=== PATIENT | female | born 1950 | race Caucasian/White ===

== ENCOUNTER → 2016-06-01 | Outpatient (CLI) | payer OTHER, BC | LOC: ULTRA 13:43 | DX: R92.8 Other abnormal and inconclusive findings on diagnostic imaging of breast (principal) ==

== ENCOUNTER → 2016-07-25 | Outpatient (CLI) | payer OTHER, BC | LOC: ULTRA 02:08 | DX: K11.8 Other diseases of salivary glands (principal) ==

== ENCOUNTER → 2016-08-09 | Outpatient (CLI) | payer OTHER, BC ==
--- NOTE | ~2016-08-09 | CNG ---
[facility] [place] [address] CYTO-NONGYN REPORT PROCEDURE Name: BEVERLY GARCIA Room #: REG CLSarah Ceron#: [id number] Admission: 08/09/16 Date of : 48 Discharge: Report #: [id number] Path Case #: [id number] CYTOPATHOLOGY REPORT COLLECTION DATE: 08/09/2016 RECEIVED DATE: 08/09/2016 SUBMITTING PHYS: Dr. Ganesh Clark OTHER PHYS: Dr Marlene Mcfarlane CLINICAL HISTORY: Right parotid mass SPECIMEN(S) RECEIVED: A.Fine needle aspiration, Right parotid * * * * * * * * * * * * FINAL DIAGNOSIS: A. Fine needle aspiration, Right parotid: Consistent with pleomorphic adenoma. COMMENT: Technical Consultant slides are co-reviewed with Dr. Nimo Rivers. Clinical and radiographic correlation is recommended. PATHOLOGIST: Monika Thomas M.D. REPORT ELECTRONICALLY SIGNED BY: Monika Thomas M.D. DATE/TIME: 08/10/2016 13:08 * * * * * * * * * * * * GROSS PATHOLOGY: A. Fine needle aspiration, Right parotid: The specimen is labeled "Beverly Garcia" and consists of two fixed slides and two air dried slides. Sixteen mL of clear red fluid in fixative from the needle rinse is also submitted and one ThinPrep slide was prepared from this material. One RNA Retain vial was received. (mm 08.09.2016) FARM TRACTOR MECHANIC(S): Annie Oscar, CT(ASCP), IAC INITIAL CPT CODE(S): A; 13522 Professional services performed by [facility] at [facility] [address], [place] [address] Technical services performed by [facility] at [address] [place] [address]., [address], [place] [address]. [facility] [address] [place] [address] CYTO-NONGYN REPORT PROCEDURE Name: RAJESHBEVERLY KEVIN Room #: REG SUMIT Dale.#: [id number] Admission: 08/09/16 Date of : 48 Discharge: Report #: [id number] Path Case #: [id number] [facility] [address] [place] [address], [address] [place] [address] PHONE: [phone] DIRECTOR: Kel Gold M.D. * * * END OF REPORT * * *
== END | disposition home or self-care (01) ==
LOC: ULTRA 12:42 → EDSTATUS 12:42 → ULTRA 13:59
DX: K11.8 Other diseases of salivary glands (principal)

== ENCOUNTER 2016-12-17 12:32 | Inpatient (IN) | payer OTHER, BC ==
[~2016-12-17] VITALS: Ht 154.9 cm; Wt 81.6 kg
[2016-12-17 12:33] VITALS: BP 186/97
[2016-12-17] MEDS ORDERED: LAMICTAL100 MG PO (12:48)
[2016-12-17] MEDS ORDERED: PRAVACHOL20 MG PO (12:48)
[2016-12-17] MEDS ORDERED: COPAXONE20 MG/SYR INJECTION (12:48)
[2016-12-17] MEDS ORDERED: COREG25 MG PO (12:49)
[2016-12-17] MEDS ORDERED: UROCIT-K5 ME1 PO (12:49)
[2016-12-17] MEDS ORDERED: CO Q-10100 MG PO (12:49)
[2016-12-17] MEDS ORDERED: VITAMIN D1000 UNI1 PO (12:50)
[2016-12-17] MEDS ORDERED: OMEGA-31000 M1 PO (12:50)
[2016-12-17 13:29] LABS: BASOPHILS 0.7 % (0.0-2.0); EOSINOPHILS 0.6 % (0.0-3.0); HEMATOCRIT 38.9 % (37.0-47.0); HEMOGLOBIN 13.1 gm/dL (12.0-15.0); LYMPHOCYTES 9.4 % (24.0-44.0); MCHC 33.6 g/dL (28.0-37.0); MCV 83.3 fL (80.0-100.0); MONOCYTES 5.3 % (1.0-8.0); PLATELET COUNT 274 thou/uL (150-400); RBC 4.67 mil/uL (4.20-5.00); WBC 10.7 thou/uL (4.0-11.0)
[2016-12-17 13:32] LABS: MANUAL DIFF NO
[2016-12-17 13:36] LABS: CALCIUM 9.2 mg/dL (8.5-10.1); CREATININE 2.2 mg/dL (0.6-1.0)
[2016-12-17 14:17] LABS: URINE BILIRUBIN NEGATIVE (Negative); URINE BLOOD 3+ (Negative); URINE COLOR YELLOW; URINE GLUCOSE-RANDOM* NEGATIVE (Negative); URINE KETONES NEGATIVE (Negative); URINE NITRITE NEGATIVE (Negative); URINE PROTEIN (DIPSTICK) NEGATIVE (Negative); URINE UROBILINOGEN 0.2 E.U./dl (0.2-1.0)
[2016-12-17 14:30] LABS: SQUAMOUS >10 Many /LPF (0-3)
[2016-12-17 14:31] LABS: BACTERIA None Seen /HPF (None Seen); CASTS None Seen /LPF (None Seen); CRYSTALS None Seen /LPF (None Seen); URINE WBC 0-5 Rare /HPF (0-5)
[2016-12-17 16:11] VITALS: BP 226/79
[2016-12-17 16:40] VITALS: BP 141/65
[2016-12-17 17:25] VITALS: BP 150/62
[2016-12-17 19:44] VITALS: BP 146/53
[2016-12-18 04:28] VITALS: BP 175/66
[2016-12-18 05:40] LABS: HEMATOCRIT 37.7 % (37.0-47.0); HEMOGLOBIN 12.7 gm/dL (12.0-15.0); MCH 28.3 pg (26.0-34.0); MCHC 33.8 g/dL (28.0-37.0); MCV 83.8 fL (80.0-100.0); RBC 4.5 mil/uL (4.20-5.00); RDW 15.2 % (10.5-14.5); WBC 8.8 thou/uL (4.0-11.0)
[2016-12-18 05:47] LABS: POTASSIUM 3.6 mmol/L (3.5-5.1)
[2016-12-18 05:56] LABS: CREATININE 0.9 mg/dL (0.6-1.0)
[2016-12-18 07:45] VITALS: BP 175/71
[2016-12-18 15:29] VITALS: BP 175/66
== END 2016-12-18 15:55 | disposition home or self-care (01) | DRG 693 ==
LOC: ER 12:32 → 4S 16:05 → EROBS 16:05 → 4S 16:41 → ENTRNSPT 12-18 15:35 → EDTRNSPTSTS 12-18 15:37 → 4S 12-18 15:55 → EDTRNSPT 12-18 15:56
PROVIDERS: Emergency Medicine; Hospitalist
DX: N20.0 Calculus of kidney (principal); N17.0 Acute kidney failure with tubular necrosis; I10 Essential (primary) hypertension; G35 Multiple sclerosis; E78.5 Hyperlipidemia, unspecified; Z87.442 Personal history of urinary calculi; Z90.5 Acquired absence of kidney; Z90.710 Acquired absence of both cervix and uterus
CPT/HCPCS: 10100

== ENCOUNTER 2017-12-07 23:07 | Emergency (ER) | payer OTHER, BC ==
[~2017-12-07] VITALS: Ht 152.4 cm; Wt 81.7 kg
[~2017-12-07 23:07] MED LIST: CO Q-10100 MG PO; COPAXONE20 MG/SYR INJECTION; COREG25 MG PO; LAMICTAL100 MG PO; OMEGA-31000 M1 PO; PRAVACHOL20 MG PO; UROCIT-K5 ME1 PO; VITAMIN D1000 UNI1 PO
[2017-12-08 00:35] LABS: BASOPHILS 0.6 % (0.0-2.0); EOSINOPHILS 1.8 % (0.0-3.0); HEMATOCRIT 36.3 % (37.0-47.0); HEMOGLOBIN 12.3 gm/dL (12.0-15.0); LYMPHOCYTES 11.9 % (24.0-44.0); MCH 28.7 pg (26.0-34.0); MCHC 33.8 g/dL (28.0-37.0); MCV 85.1 fL (80.0-100.0); MONOCYTES 0.3 % (1.0-8.0); PLATELET COUNT 288 thou/uL (150-400); POLYS 85.4 % (36.0-66.0); RBC 4.27 mil/uL (4.20-5.00); RDW 15.3 % (10.5-14.5); WBC 5.9 thou/uL (4.0-11.0)
[2017-12-08 00:45] LABS: CALCIUM 9.4 mg/dL (8.5-10.1); CREATININE 1.3 mg/dL (0.6-1.0); POTASSIUM 5.3 mmol/L (3.5-5.1)
[2017-12-08 03:49] LABS: URINE BILIRUBIN NEGATIVE (Negative); URINE BLOOD 3+ (Negative); URINE CLARITY SL CLOUDY; URINE COLOR YELLOW; URINE GLUCOSE-RANDOM* NEGATIVE (Negative); URINE KETONES NEGATIVE (Negative); URINE LEUKOCYTES-REFLEX 1+ (Negative); URINE NITRITE-REFLEX NEGATIVE (Negative); URINE PROTEIN (DIPSTICK) TRACE (Negative); URINE SPECIFIC GRAVITY 1.025 (1.005-1.035); URINE UROBILINOGEN 0.2 E.U./dl (0.2-1.0)
[2017-12-08 04:02] LABS: BACTERIA-REFLEX >30 Many /HPF (None Seen); CASTS None Seen /LPF (None Seen); CRYSTALS None Seen /LPF (None Seen); SQUAMOUS 0-3 Few /LPF (0-3)
== END 2017-12-08 05:25 | disposition short-term general hospital (02) ==
LOC: ER 23:07
PROVIDERS: Student in an Organized Health Care Education/Training Program
DX: N39.0 Urinary tract infection, site not specified (principal); N20.0 Calculus of kidney; G35 Multiple sclerosis; Z90.710 Acquired absence of both cervix and uterus